=== PATIENT | female | born 1960 | race Caucasian/White ===

== ENCOUNTER → 2019-10-07 | Outpatient (CLI) | payer OTHER, MEDICAID ==
--- NOTE | 2019-10-08 16:27 | RAD ---
EXAM DESCRIPTION: Pelvis: CR/DR/XR CLINICAL HISTORY: HIP PAIN COMPARISON: Radiographs of the right knee and right femur same visit. TECHNIQUE: One view AP Pelvis FINDINGS: Decreased bone density pelvis and bilateral femurs and hip joint regions. Intramedullary nail in the right femur with a Zickel Nail in the neck and femoral head. Radiolucency noted on either side of the medullary nail and the Zickel Nail. This could represent loosening. Partially healed fracture upper femoral shaft. No hip dislocation bilaterally. Bone density decreased. Radiolucency in sclerotic line is noted on either side of the left femur with proximal intramedullary nail, but Zickel Nail is unremarkable including the surrounding bone. No pelvic bone fractures. Bilateral vascular calcifications. Minimal narrowing of the superior right hip joint. IMPRESSION: Overall bone density is decreased. Mild arthrosis right hip joint. Loosening of the right femoral intramedullary nail in the Zickel Nail in the femoral neck and femoral head. Recurrent fracture line in the proximal right femoral fracture. Possible loosening of the left intramedullary femoral nail. Electronically signed by: Dillan Goncalves MD 10/08/2019 4:26 PM [facility]
--- NOTE | 2019-10-08 16:38 | RAD ---
EXAM DESCRIPTION: Knee,Right Complete (accession [id number]), Femur,Right (accession [id number]): CR/DR/XR. CLINICAL HISTORY: 59 years FemaleKNEE PAIN COMPARISON: Radiographs of the pelvis and right hip on the same visit. TECHNIQUE: 4 views right femur and 4 views right knee AP lateral right femur and right knee, and patellofemoral view right knee. FINDINGS: Radiolucency with a sclerotic line on the medial and lateral aspect of the right femoral intramedullary nail with minimal radiolucency on the lateral aspect. A previously partially healed fracture of the right mid femoral shaft shows sclerosis and partial calcification but fracture line is well demonstrated. Soft tissue swelling on the lateral aspect with small bone densities in the soft tissues. The fracture angles laterally, with the femur distal to the fracture angling medially. The distal femoral nail has migrated laterally and posteriorly in the distal femoral shaft with radial lucency and sclerotic lines again visualized. Cement is visualized in the original cavity of the distal femur where the nail was originally located. There is also radiolucency around a screw in the distal medullary nail [id number]. The screw is displacing the endosteum in the lateral and medial direction. No suprapatellar effusion. IMPRESSION: 1. Loosening along the entire length of the right femoral intramedullary nail. Recurrent fracture in the mid right femoral diaphysis with no healing, but the nail is intact. Soft tissue mass and calcifications in the surrounding tissues The distal femur is angulated medially and anteriorly with the distal nail migrating laterally and posteriorly. Distal fixation screw is displacing endosteum outward on the medial and lateral femoral surfaces. Electronically signed by: Dillan Goncalves MD 10/08/2019 4:36 PM [facility]
--- NOTE | 2019-10-08 16:38 | RAD ---
EXAM DESCRIPTION: Knee,Right Complete (accession [id number]), Femur,Right (accession [id number]): CR/DR/XR. CLINICAL HISTORY: 59 years FemaleKNEE PAIN COMPARISON: Radiographs of the pelvis and right hip on the same visit. TECHNIQUE: 4 views right femur and 4 views right knee AP lateral right femur and right knee, and patellofemoral view right knee. FINDINGS: Radiolucency with a sclerotic line on the medial and lateral aspect of the right femoral intramedullary nail with minimal radiolucency on the lateral aspect. A previously partially healed fracture of the right mid femoral shaft shows sclerosis and partial calcification but fracture line is well demonstrated. Soft tissue swelling on the lateral aspect with small bone densities in the soft tissues. The fracture angles laterally, with the femur distal to the fracture angling medially. The distal femoral nail has migrated laterally and posteriorly in the distal femoral shaft with radial lucency and sclerotic lines again visualized. Cement is visualized in the original cavity of the distal femur where the nail was originally located. There is also radiolucency around a screw in the distal medullary nail [id number]. The screw is displacing the endosteum in the lateral and medial direction. No suprapatellar effusion. IMPRESSION: 1. Loosening along the entire length of the right femoral intramedullary nail. Recurrent fracture in the mid right femoral diaphysis with no healing, but the nail is intact. Soft tissue mass and calcifications in the surrounding tissues The distal femur is angulated medially and anteriorly with the distal nail migrating laterally and posteriorly. Distal fixation screw is displacing endosteum outward on the medial and lateral femoral surfaces. Electronically signed by: Dillan Goncalves MD 10/08/2019 4:36 PM [facility]
== END ==
LOC: RAD 09:24
PROVIDERS: ATTEND Orthopaedic Surgery
DX: T84.298A Other mechanical complication of internal fixation device of other bones, initial encounter (principal); M84.452S Pathological fracture, left femur, sequela; M79.9 Soft tissue disorder, unspecified